=== PATIENT | female | born 1975 | race Two or more races ===

== ENCOUNTER 2019-02-15 12:35 | Outpatient (CLI) | payer OTHER ==
[~2019-02-15 12:35] MED LIST: MEDROL4 MG PO; PHENAGIL TABLE1 EACH PO
== END 2019-02-15 13:56 | disposition home or self-care (01) ==
LOC: MAMO-SONO 12:35
DX: N64.4 Mastodynia (principal); N60.11 Diffuse cystic mastopathy of right breast; N63.10 Unspecified lump in the right breast, unspecified quadrant; N63.20 Unspecified lump in the left breast, unspecified quadrant; Z12.31 Encounter for screening mammogram for malignant neoplasm of breast

== ENCOUNTER 2021-08-21 08:00 | Outpatient (CLI) | payer OTHER | END 2021-08-21 08:30 | disposition home or self-care (01) | LOC: PPH VACUNA 08:00 | PROVIDERS: ATTEND Emergency Medicine Pediatric Emergency Medicine | DX: Z23 Encounter for immunization (principal) ==